=== PATIENT | male | born 1955 | race Caucasian/White ===

== ENCOUNTER 2017-01-04 08:54 | Emergency (ER) | payer OTHER ==
[~2017-01-04] VITALS: Ht 195.6 cm; Wt 138.0 kg
[2017-01-04 08:57] VITALS: BP 118/77
== END 2017-01-04 09:59 | disposition home or self-care (01) ==
LOC: ER 09:47
DX: S00.31XA Abrasion of nose, initial encounter (principal); S60.511A Abrasion of right hand, initial encounter; S50.311A Abrasion of right elbow, initial encounter; R51 Headache; W01.0XXA Fall on same level from slipping, tripping and stumbling without subsequent striking against object, initial encounter; Y93.89 Activity, other specified; Y92.69 Other specified industrial and construction area as the place of occurrence of the external cause; Y99.0 Civilian activity done for income or pay
CPT/HCPCS: 99283; A4217; Z7610